=== PATIENT | female | born 1960 | race Caucasian/White ===

== ENCOUNTER → 2016-12-12 | Outpatient (CLI) | payer OTHER ==
[~2016-12-12] VITALS: Ht 132.1 cm; Wt 45.4 kg
== END ==
LOC: OPSV 08:59
DX: M81.0 Age-related osteoporosis without current pathological fracture (principal); Z88.0 Allergy status to penicillin; Z79.899 Other long term (current) drug therapy
CPT/HCPCS: 96365; J3489; J7050

== ENCOUNTER → 2020-11-22 | Outpatient (CLI) | payer OTHER | LOC: US 10:15 | DX: Z86.19 Personal history of other infectious and parasitic diseases (principal); R16.1 Splenomegaly, not elsewhere classified; Z90.49 Acquired absence of other specified parts of digestive tract | CPT/HCPCS: 76700 ==